=== PATIENT | male | born 2005 | race Caucasian/White ===

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

== ENCOUNTER 2023-03-20 22:44 | Emergency (ER) | payer OTHER ==
[2023-03-20] MEDS ORDERED: diphenhydrAMINE 50 MG/ML 1 ML VIAL IM STA (22:45)
[2023-03-20] MEDS ORDERED: HALOPERIDOL LACTATE 5 MG/ML 1 ML VIAL IM STA (22:45)
[2023-03-20] MEDS ORDERED: LORazepam 2 MG/ML INJ IM STA (22:45)
[2023-03-20 22:52] LABS: Glucose,Whole Blood 104 mg/dL (70-110)
[2023-03-20 22:58] VITALS: TEMP 98.7
--- NOTE | 2023-03-20 23:00 | ED ---
General Adult HPI - General Source: patient Mode of arrival: ambulatory <Phu Monahan - Last Filed: 03/21/23 00:38> - General Source: RN notes reviewed, old records reviewed <Jacobo Woody - Last Filed: 03/21/23 13:41> - General Stated complaint: AMS,Overdose Time Seen by Provider: 03/20/23 22:52 - History of Present Illness Initial comments: This is a 18-year-old male who presents emergency department via EMS and police while handcuffed presents emergency department for increasing agitation and aggression as well as being found in the middle of the street, suicidal. It was reported by EMS that the patient was found to the middle of the street, intoxicated and intermittently verbally responsive but was intimately combative and aggressive. The patient reportedly was dumped by his girlfriend earlier today for "being addicted to cocaine" and therefore was intoxicated and was found in the street. The patient was combative on EMS arrival and did require police to restrain the patient. On arrival, the patient was not able to answer questions appropriately and was intoxicated. The patient was 4. restrained on arrival as well as medicated. The patient did continue to remain stable after medications however no further history was obtained at this time. (Phu Monahan) - Related Data Home Medications Medication Instructions Recorded Confirmed No Known Home Medications 03/21/23 03/21/23 Allergies Allergy/AdvReac Type Severity Reaction Status Date / Time No Known Allergies Allergy Verified 03/21/23 12:12 Review of Systems ROS Other: All systems not noted in ROS Statement are negative. <Phu Monahan - Last Filed: 03/21/23 00:38> ROS Other: All systems not noted in ROS Statement are negative. <Jacobo Woody - Last Filed: 03/21/23 13:41> ROS Statement: Those systems with pertinent positive or pertinent negative responses have been documented in the HPI. Past Medical History Past Medical History: No Reported History History of Any Multi-Drug Resistant Organisms: None Reported Past Surgical History: Ear Surgery Additional Past Surgical History / Comment(s): Tubes in his ears Past Psychological History: No Psychological Hx Reported Smoking Status: Current every day smoker Past Alcohol Use History: Occasional Past Drug Use History: Marijuana <Phu Monahan - Last Filed: 03/21/23 00:38> General Exam Limitations: altered mental status (Combative, aggressive), physical limitation General appearance: alert, anxious, in distress (Combative) Head exam: Present: atraumatic, normocephalic, normal inspection Eye exam: Present: normal appearance, PERRL Pupils: Present: normal accommodation ENT exam: Present: normal exam, normal oropharynx, mucous membranes moist Neck exam: Present: normal inspection, full ROM Respiratory exam: Present: normal lung sounds bilaterally Cardiovascular Exam: Present: regular rate, normal rhythm, normal heart sounds GI/Abdominal exam: Present: soft, normal bowel sounds Extremities exam: Present: normal inspection, full ROM Back exam: Present: normal inspection, full ROM Neurological exam: Present: alert, altered (Combative, aggressive, intoxicated) Psychiatric exam: Present: agitated, suicidal ideation Skin exam: Present: warm, dry <Phu Monahan - Last Filed: 03/21/23 00:38> Course Vital Signs 03/20/23 03/21/23 03/21/23 22:57 05:00 07:33 Temperature 98.7 F Pulse Rate 83 76 78 Respiratory 18 16 18 Rate Blood Pressure 143/75 117/58 101/66 O2 Sat by Pulse 100 97 99 Oximetry Procedures - Restraint - Face to Face Restraint Occurrence 1 Patient's Immediate Situation: Endangers self safety, Endangers others' safety Patient's Reaction to the Intervention: Aggressive, Combative Patient's Medical & Behavioral Condition: Alert, Agitated Need to Continue or Terminate Restraint or Seclusion: Continue Face to Face Eval of Restraint Date: 03/20/23 Face to Face Eval of Restraint Time: 22:55 <Phu Monahan - Last Filed: 03/21/23 00:38> Medical Decision Making - Lab Data Result diagrams: 03/20/23 22:57 03/20/23 22:57 <Phu Monahan - Last Filed: 03/21/23 00:38> - Lab Data Result diagrams: 03/20/23 22:57 03/20/23 22:57 <Jacobo Woody - Last Filed: 03/21/23 13:41> - Medical Decision Making Was pt. sent in by a medical professional or institution (, PA, HEDGE FUND TRADER, urgent care, hospital, or senior care...) When possible be specific @ -No Did you speak to anyone other than the patient for history (EMS, parent, family, police, friend...)? What history was obtained from this source @ -Yes, EMS and police were called the patient at the scene and did state that he had been continuously combative and aggressive Did you review nursing and triage notes (agree or disagree)? Why? @ -I reviewed and agree with nursing and triage notes Were old charts reviewed (outside hosp., previous admission, EMS record, old EKG, old radiological studies, urgent care reports/EKG's, senior care records)? Report findings @ -No old charts were reviewed Differential Diagnosis (chest pain, altered mental status, abdominal pain women, abdominal pain men, vaginal bleeding, weakness, fever, dyspnea, syncope, headache, dizziness, GI bleed, back pain, seizure, CVA, palpatations, mental health)? @ -Polysubstance abuse, alcohol intoxication, cocaine intoxication, suicidal ideation EKG interpreted by me (3pts min.). @ -None X-rays interpreted by me (1pt min.). @ -None done CT interpreted by me (1pt min.). @ -None done U/S interpreted by me (1pt. min.). @ -None done What testing was considered but not performed or refused? (CT, X-rays, U/S, labs)? Why? @ -None What meds were considered but not given or refused? Why? @ -None Did you discuss the management of the patient with other professionals (professionals i.e. , PA, HEDGE FUND TRADER, lab, RT, psych nurse, social science teacher, foster parent, teacher, financial administration officer, case planner)? Give summary @ -No Was smoking cessation discussed for >3mins.? @ -No Was critical care preformed (if so, how long)? @ -No Were there social determinants of health that impacted care today? How? (Homelessness, low income, unemployed, alcoholism, drug addiction, transportation, low edu. Level, literacy, decrease access to med. care, halfway, rehab)? @ -Polysubstance abuse and addiction Was there de-escalation of care discussed even if they declined (Discuss DNR or withdrawal of care, Hospice)? DNR status @ -No What co-morbidities impacted this encounter? (DM, HTN, Smoking, COPD, CAD, Cancer, CVA, ARF, Chemo, Hep., AIDS, mental health diagnosis, sleep apnea, morbid obesity)? @ -None Was patient admitted / discharged? Hospital course, mention meds given and route, prescriptions, significant lab abnormalities, going to OR and other pertinent info. @ -The patient was seen and evaluated emergency department. Initially on arrival, the patient needed several security officers as well as police in order to restrain the patient. The patient was combative, aggressive as well as spitting on all staff. The patient needed be restrained as well as given medications including Benadryl, Ativan and Haldol for both the patient's safety and the safety of the staff. The patient was able to remain calm after this medication was given. It was reported the patient was intoxicated and on cocaine and was saying that he was suicidal secondary to his girlfriend dumping earlier. Laboratory workup was obtained and showed increased on-call intoxication. The remainder laboratory workup was within normal limits. The patient will be closely monitored observed pending sobriety for EPS evaluation. The patient be signed out to the oncoming physician pending EPS evaluation. Undiagnosed new problem with uncertain prognosis? @ -No Drug Therapy requiring intensive monitoring for toxicity (Heparin, Nitro, Insulin, Cardizem)? @ -No Were any procedures done? @ -No Diagnosis/symptom? @ -Alcohol intoxication with combativeness, aggression and suicidality Acute, or Chronic, or Acute on Chronic? @ -Acute Uncomplicated (without systemic symptoms) or Complicated (systemic symptoms)? @ -Complicated Side effects of treatment? @ -No Exacerbation, Progression, or Severe Exacerbation? @ -No Poses a threat to life or bodily function? How? (Chest pain, [place], [place], pneumonia, PE, COPD, DKA, ARF, appy, cholecystitis, CVA, Diverticulitis, Homicidal, Suicidal, threat to staff... and all critical care pts) @ -Yes, continued combativeness and aggression with suicidality lead to continued damage and possible . (Phu Monahan) - Lab Data Lab Results 03/20/23 03/20/23 03/20/23 Range/Units 22:51 22:57 22:57 WBC 11.2 H (4.0-11.0) k/uL RBC 4.74 (4.30-5.90) m/uL Hgb 15.0 (13.0-17.5) gm/dL Hct 45.6 (39.0-53.0) % MCV 96.1 (80.0-100.0) fL MCH 31.7 (25.0-35.0) pg MCHC 33.0 (31.0-37.0) g/dL RDW 12.1 (11.5-15.5) % Plt Count 293 (150-450) k/uL MPV 9.5 Neutrophils % 65 % Lymphocytes % 21 % Monocytes % 9 % Eosinophils % 1 % Basophils % 0 % Neutrophils # 7.3 (1.3-7.7) k/uL Lymphocytes # 2.4 (1.0-4.8) k/uL Monocytes # 1.0 (0-1.0) k/uL Eosinophils # 0.2 (0-0.7) k/uL Basophils # 0.0 (0-0.2) k/uL Sodium 144 (137-145) mmol/L Potassium 4.1 (3.5-5.1) mmol/L Chloride 103 (98-107) mmol/L Carbon Dioxide 22 (22-30) mmol/L Anion Gap 19 mmol/L BUN 9 (9-20) mg/dL Creatinine 0.90 (0.66-1.25) mg/dL Est GFR (CKD-EPI)AfAm >90 (>60 ml/min/1.73 sqM) Est GFR (CKD-EPI)NonAf >90 (>60 ml/min/1.73 sqM) Glucose 109 H (74-99) mg/dL POC Glucose (mg/dL) 104 (70-110) mg/dL POC Glu Block Cuber ID Alex Kameron Calcium 9.6 (8.4-10.2) mg/dL Magnesium 2.3 (1.6-2.3) mg/dL Total Bilirubin 0.7 (0.2-1.3) mg/dL AST 37 (17-59) U/L ALT 32 (4-49) U/L Alkaline Phosphatase 101 (38-126) U/L Total Protein 8.3 H (6.3-8.2) g/dL Albumin 5.1 H (3.5-5.0) g/dL Urine Color Urine Appearance (Clear) Urine pH (5.0-8.0) Ur Specific [place] (1.001-1.035) Urine Protein (Negative) Urine Glucose (UA) (Negative) Urine Ketones (Negative) Urine Blood (Negative) Urine Nitrite (Negative) Urine Bilirubin (Negative) Urine Urobilinogen (<2.0) mg/dL Ur Leukocyte Esterase (Negative) Salicylates <1.0 mg/dL Urine Opiates Screen (NotDetected) Ur Oxycodone Screen (NotDetected) Urine Methadone Screen (NotDetected) Ur Propoxyphene Screen (NotDetected) Acetaminophen <10.0 ug/mL Ur Barbiturates Screen (NotDetected) U Tricyclic Antidepress (NotDetected) Ur Phencyclidine Scrn (NotDetected) Ur Amphetamines Screen (NotDetected) U Methamphetamines Scrn (NotDetected) U Benzodiazepines Scrn (NotDetected) Urine Cocaine Screen (NotDetected) U Marijuana (THC) Screen (NotDetected) Serum Alcohol 267 H* mg/dL 03/20/23 03/20/23 Range/Units 23:00 23:00 WBC (4.0-11.0) k/uL RBC (4.30-5.90) m/uL Hgb (13.0-17.5) gm/dL Hct (39.0-53.0) % MCV (80.0-100.0) fL MCH (25.0-35.0) pg MCHC (31.0-37.0) g/dL RDW (11.5-15.5) % Plt Count (150-450) k/uL MPV Neutrophils % % Lymphocytes % % Monocytes % % Eosinophils % % Basophils % % Neutrophils # (1.3-7.7) k/uL Lymphocytes # (1.0-4.8) k/uL Monocytes # (0-1.0) k/uL Eosinophils # (0-0.7) k/uL Basophils # (0-0.2) k/uL Sodium (137-145) mmol/L Potassium (3.5-5.1) mmol/L Chloride (98-107) mmol/L Carbon Dioxide (22-30) mmol/L Anion Gap mmol/L BUN (9-20) mg/dL Creatinine (0.66-1.25) mg/dL Est GFR (CKD-EPI)AfAm (>60 ml/min/1.73 sqM) Est GFR (CKD-EPI)NonAf (>60 ml/min/1.73 sqM) Glucose (74-99) mg/dL POC Glucose (mg/dL) (70-110) mg/dL POC Glu Block Cuber ID Calcium (8.4-10.2) mg/dL Magnesium (1.6-2.3) mg/dL Total Bilirubin (0.2-1.3) mg/dL AST (17-59) U/L ALT (4-49) U/L Alkaline Phosphatase (38-126) U/L Total Protein (6.3-8.2) g/dL Albumin (3.5-5.0) g/dL Urine Color Light Yellow Urine Appearance Clear (Clear) Urine pH 6.0 (5.0-8.0) Ur Specific [place] 1.006 (1.001-1.035) Urine Protein Negative (Negative) Urine Glucose (UA) Negative (Negative) Urine Ketones Negative (Negative) Urine Blood Negative (Negative) Urine Nitrite Negative (Negative) Urine Bilirubin Negative (Negative) Urine Urobilinogen <2.0 (<2.0) mg/dL Ur Leukocyte Esterase Negative (Negative) Salicylates mg/dL Urine Opiates Screen Not Detected (NotDetected) Ur Oxycodone Screen Not Detected (NotDetected) Urine Methadone Screen Not Detected (NotDetected) Ur Propoxyphene Screen Not Detected (NotDetected) Acetaminophen ug/mL Ur Barbiturates Screen Not Detected (NotDetected) U Tricyclic Antidepress Not Detected (NotDetected) Ur Phencyclidine Scrn Not Detected (NotDetected) Ur Amphetamines Screen Not Detected (NotDetected) U Methamphetamines Scrn Not Detected (NotDetected) U Benzodiazepines Scrn Not Detected (NotDetected) Urine Cocaine Screen Detected H (NotDetected) U Marijuana (THC) Screen Detected H (NotDetected) Serum Alcohol mg/dL Disposition <Phu Monahan - Last Filed: 03/21/23 00:38> Is patient prescribed a controlled substance at d/c from ED?: No Time of Disposition: 13:41 <Jacobo Woody - Last Filed: 03/21/23 13:41> Clinical Impression: Cocaine abuse, Alcohol abuse, Depression Disposition: HOME SELF-CARE Condition: Fair Instructions (If sedation given, give patient instructions): Depression (ED) Additional Instructions: Please follow up with primary care physician and with community mental health Referrals: None,Stated [Primary Care Provider] - 1-2 days
[2023-03-20 23:05] LABS: Basophils % (A) 0 %; Eosinophils # (A) 0.2 k/uL (0-0.7); Eosinophils % (A) 1 %; HCT 45.6 % (39.0-53.0); Lymphocytes # (A) 2.4 k/uL (1.0-4.8); Lymphocytes % (A) 21 %; MCH 31.7 pg (25.0-35.0); MCV 96.1 fL (80.0-100.0); Mean Platelet Volume 9.5; Monocytes % (A) 9 %; Neutrophils # (A) 7.3 k/uL (1.3-7.7); Neutrophils % (A) 65 %; Platelet Count 293 k/uL (150-450); RBC 4.74 m/uL (4.30-5.90); RDW 12.1 % (11.5-15.5); WBC 11.2 k/uL (4.0-11.0)
[2023-03-20 23:20] LABS: Appearance,Urine Clear (Clear); Bilirubin,Urine Negative (Negative); Blood,Urine Negative (Negative); Color,Urine Light Yellow; Glucose,Urine (UA) Negative (Negative); Ketones,Urine Negative (Negative); Leukocyte Esterase,Urine Negative (Negative); Nitrite,Urine Negative (Negative); Protein,Urine Negative (Negative); Specific Gravity,Urine 1.006 (1.001-1.035); Urobilinogen,Urine <2.0 mg/dL (<2.0)
[2023-03-20 23:22] LABS: ALT 32 U/L (4-49); AST 37 U/L (17-59); Acetaminophen <10.0 ug/mL; African American GFR (CKD) >90 (>60 ml/min/1.73 sqM); Albumin 5.1 g/dL (3.5-5.0); Alkaline Phosphatase 101 U/L (38-126); Anion Gap 19 mmol/L; Blood Urea Nitrogen 9 mg/dL (9-20); Calcium 9.6 mg/dL (8.4-10.2); Carbon Dioxide 22 mmol/L (22-30); Chloride 103 mmol/L (98-107); Glucose 109 mg/dL (74-99); Magnesium 2.3 mg/dL (1.6-2.3); Non-African American GFR(CKD) >90 (>60 ml/min/1.73 sqM); Potassium 4.1 mmol/L (3.5-5.1); Salicylate <1.0 mg/dL; Sodium 144 mmol/L (137-145); Total Bilirubin 0.7 mg/dL (0.2-1.3); Total Protein 8.3 g/dL (6.3-8.2)
[2023-03-20 23:26] LABS: Alcohol 267 mg/dL
[2023-03-20 23:33] LABS: Cocaine Screen,Urine Detected (NotDetected); Opiate Screen,Urine Not Detected (NotDetected); Phencyclidine Screen,Urine Not Detected (NotDetected); Urn Cannabinoid Scrn Detected (NotDetected)
[2023-03-20 23:34] LABS: Amphetamine Screen,Urine Not Detected (NotDetected); Barbiturate Screen,Urine Not Detected (NotDetected); Benzodiazepines Screen,Urine Not Detected (NotDetected); Methadone Screen, Urine Not Detected (NotDetected); Oxycodone Screen, Urine Not Detected (NotDetected); Tricyclic Antidepressant,Urine Not Detected (NotDetected)
[2023-03-21 07:35] VITALS: BP 101/66; PULSE 78; RESP 18
== END 2023-03-21 14:00 | disposition home or self-care (01) ==
LOC: EC 22:44
DX: F14.10 Cocaine abuse, uncomplicated (principal); F10.10 Alcohol abuse, uncomplicated; F32.A Depression, unspecified; F17.200 Nicotine dependence, unspecified, uncomplicated; F12.90 Cannabis use, unspecified, uncomplicated; Y90.0 Blood alcohol level of less than 20 mg/100 ml
CPT/HCPCS: 99285 ×2; 96372 ×4; 36415; 80053; 83735; 85025; 81003; 80306; 80143; 80179; G0480; J2060; J1200; J1630; 80320

== ENCOUNTER 2023-03-25 08:34 | Emergency (ER) | payer OTHER ==
[2023-03-25 08:41] VITALS: BP 126/75; PULSE 120; RESP 18; TEMP 97.8
--- NOTE | 2023-03-25 09:00 | ED ---
Head Injury HPI - General Chief complaint: Head Injury Stated complaint: Head injury Time Seen by Provider: 03/25/23 08:44 Source: patient, RN notes reviewed Mode of arrival: ambulatory Limitations: no limitations - History of Present Illness Initial comments: 18-year-old male presents emergency Department chief complaint of a head injury. Patient states that he was doing drug ingestion and somehow bumped his head. He states he has no pain better but vision is unclear how this happened he states he is here to see wants it looked at. He states his tetanus is up-to-date. Patient denies any weakness no other associated symptoms. - Related Data Home Medications Medication Instructions Recorded Confirmed No Known Home Medications 03/21/23 03/21/23 Allergies/Adverse reactions: Allergies Allergy/AdvReac Type Severity Reaction Status Date / Time No Known Allergies Allergy Verified 03/25/23 08:41 Review of Systems ROS Statement: Those systems with pertinent positive or pertinent negative responses have been documented in the HPI. ROS Other: All systems not noted in ROS Statement are negative. Past Medical History Past Medical History: No Reported History History of Any Multi-Drug Resistant Organisms: None Reported Past Surgical History: Ear Surgery Additional Past Surgical History / Comment(s): Tubes in his ears Past Psychological History: No Psychological Hx Reported Smoking Status: Current every day smoker Past Alcohol Use History: Occasional Past Drug Use History: Cocaine, IV Drug Use, Marijuana General Exam Limitations: no limitations General appearance: alert, in no apparent distress Head exam: Present: atraumatic, normocephalic. Absent: normal inspection (Superficial abrasion right parietal frontal) Eye exam: Present: normal appearance, PERRL, EOMI. Absent: scleral icterus, conjunctival injection, periorbital swelling ENT exam: Present: normal exam, normal oropharynx, mucous membranes moist Neck exam: Present: normal inspection, full ROM. Absent: tenderness, meningismus, lymphadenopathy Respiratory exam: Present: normal lung sounds bilaterally. Absent: respiratory distress, wheezes, rales, rhonchi, stridor Cardiovascular Exam: Present: regular rate, normal rhythm, normal heart sounds. Absent: systolic murmur, diastolic murmur, rubs, gallop, clicks Neurological exam: Present: alert, oriented X3, CN II-XII intact, reflexes normal. Absent: motor sensory deficit Skin exam: Present: warm, dry, intact, normal color. Absent: rash Course Vital Signs 03/25/23 08:35 Temperature 97.8 F Pulse Rate 120 H Respiratory 18 Rate Blood Pressure 126/75 O2 Sat by Pulse 100 Oximetry Medical Decision Making - Medical Decision Making Was pt. sent in by a medical professional or institution (SCOTT oCrtés, FINGERER, urgent care, hospital, or snf...) When possible be specific @ -No Did you speak to anyone other than the patient for history (EMS, parent, family, police, friend...)? What history was obtained from this source @ -No Did you review nursing and triage notes (agree or disagree)? Why? @ -I reviewed and agree with nursing and triage notes Were old charts reviewed (outside hosp., previous admission, EMS record, old EKG, old radiological studies, urgent care reports/EKG's, snf records)? Report findings @ -No old charts were reviewed Differential Diagnosis (chest pain, altered mental status, abdominal pain women, abdominal pain men, vaginal bleeding, weakness, fever, dyspnea, syncope, headache, dizziness, GI bleed, back pain, seizure, CVA, palpatations, mental health, musculoskeletal)? @ -Scalp abrasion, scalp laceration, head injury, intracranial hemorrhage EKG interpreted by me (3pts min.). @ -None X-rays interpreted by me (1pt min.). @ -None done CT interpreted by me (1pt min.). @ -None done U/S interpreted by me (1pt. min.). @ -None done What testing was considered but not performed or refused? (CT, X-rays, U/S, labs)? Why? @ -Recommended CT given an known injury but patient declined stating he has asymptomatic patient is awake alert and oriented 4 What meds were considered but not given or refused? Why? @ -None Did you discuss the management of the patient with other professionals (professionals i.e. SCOTT Cortés, FINGERER, lab, RT, psych nurse, older adult social work specialist, zmt operator, teacher, personnel officer, rn case manager hospice)? Give summary @ -No Was smoking cessation discussed for >3mins.? @ -No Was critical care preformed (if so, how long)? @ -No Were there social determinants of health that impacted care today? How? (Homelessness, low income, unemployed, alcoholism, drug addiction, transportation, low edu. Level, literacy, decrease access to med. care, skilled nursing, rehab)? @ -No Was there de-escalation of care discussed even if they declined (Discuss DNR or withdrawal of care, Hospice)? DNR status @ -No What co-morbidities impacted this encounter? (DM, HTN, Smoking, COPD, CAD, Cancer, CVA, ARF, Chemo, Hep., AIDS, mental health diagnosis, sleep apnea, morbid obesity)? @ -Drug abuse Was patient admitted / discharged? Hospital course, mention meds given and route, prescriptions, significant lab abnormalities, going to OR and other pertinent info. @ -Discharge patient has superficial injury to his head there is no required closure tetanus is up-to-date. Recommended CT patient declined. Undiagnosed new problem with uncertain prognosis? @ -No Drug Therapy requiring intensive monitoring for toxicity (Heparin, Nitro, Insulin, Cardizem)? @ -No Were any procedures done? @ -No Diagnosis/symptom? @ -Scalp abrasion Acute, or Chronic, or Acute on Chronic? @ -Acute Uncomplicated (without systemic symptoms) or Complicated (systemic symptoms)? @ -Uncomplicated Side effects of treatment? @ -No Exacerbation, Progression, or Severe Exacerbation? @ -No Poses a threat to life or bodily function? How? (Chest pain, [place], [place], pneumonia, PE, COPD, DKA, ARF, appy, cholecystitis, CVA, Diverticulitis, Homicidal, Suicidal, threat to staff... and all critical care pts) @ -No Disposition Clinical Impression: Scalp abrasion Disposition: HOME SELF-CARE Condition: Stable Instructions (If sedation given, give patient instructions): Head Injury (ED), Abrasion (ED) Additional Instructions: Please return to the Emergency Department if symptoms worsen or any other concerns. Is patient prescribed a controlled substance at d/c from ED?: No Referrals: None,Stated [Primary Care Provider] - 1-2 days Time of Disposition: 09:00
== END 2023-03-25 09:22 | disposition home or self-care (01) ==
LOC: EC 08:34
DX: S00.01XA Abrasion of scalp, initial encounter (principal); F17.200 Nicotine dependence, unspecified, uncomplicated; X58.XXXA Exposure to other specified factors, initial encounter
CPT/HCPCS: 99283

== ENCOUNTER 2023-06-15 14:57 | Inpatient (IN) | payer OTHER ==
[2023-06-15] MEDS ORDERED: SODIUM CHLORIDE 0.9% 1,000 ML IV ONE ×2 (15:59→17:47)
--- NOTE | 2023-06-15 16:01 | ED ---
General Adult HPI - General Chief complaint: Recheck/Abnormal Lab/Rx Stated complaint: cramping and spasms/sweating Time Seen by Provider: 06/15/23 15:50 Source: patient, RN notes reviewed Mode of arrival: ambulatory Limitations: no limitations - History of Present Illness Initial comments: 18 year-old male with past medical history significant for polysubstance abuse presents to the emergency department with a chief complaint of generalized fatigue. Patient reports that he believes that he may tetanus because he feels like he will be working while [employer] and feel his whole body be tense. He has not taken anything for his symptoms. He has never had this happen to him before. He reports that he has not had any contact with ariana mariano horacio that he knows of. He denies any fever, chills, cough, headache, pain, shortness of breath. He does report vomiting 3 times today - Related Data Home Medications Medication Instructions Recorded Confirmed No Known Home Medications 03/21/23 06/15/23 Allergies Allergy/AdvReac Type Severity Reaction Status Date / Time No Known Allergies Allergy Verified 06/15/23 17:28 Review of Systems ROS Statement: Those systems with pertinent positive or pertinent negative responses have been documented in the HPI. ROS Other: All systems not noted in ROS Statement are negative. Past Medical History Past Medical History: No Reported History History of Any Multi-Drug Resistant Organisms: None Reported Past Surgical History: Ear Surgery Additional Past Surgical History / Comment(s): Tubes in his ears Past Psychological History: No Psychological Hx Reported Smoking Status: Current every day smoker Past Alcohol Use History: Occasional Past Drug Use History: Cocaine, IV Drug Use, Marijuana General Exam - General Exam Comments Initial Comments: General: Alert, in no acute distress Head: atraumatic normocephalic. Eyes PERRL, EOMI intact, mucous membranes moist Respiratory: Lungs clear to auscultation bilaterally Cardiovascular: Regular rate and rhythm Abdominal: Soft without guarding or rebound Extremities: Normal inspection with full range of motion and normal capillary refill Neuroogic: alert and oriented 3, CN II-XII intact, able to ambulate with steady gait Skin: warm dry and intact with normal color Limitations: no limitations Course Vital Signs 06/15/23 06/15/23 06/15/23 15:40 16:22 17:06 Temperature 98.3 F 99.0 F 98.9 F Pulse Rate 111 H 82 75 Respiratory 18 16 16 Rate Blood Pressure 133/94 145/90 141/82 O2 Sat by Pulse 100 99 97 Oximetry 06/15/23 06/15/23 17:58 19:05 Temperature 99.3 F Pulse Rate 70 73 Respiratory 17 18 Rate Blood Pressure 142/72 141/87 O2 Sat by Pulse 99 96 Oximetry - Reevaluation(s) Reevaluation #1: 06/15/23 19:35 Patient updated on results. Patient's agreeable with the plan for admission Medical Decision Making - Medical Decision Making Was pt. sent in by a medical professional or institution (, [facility], urgent care, hospital, or skilled nursing...) When possible be specific @ -[No] Did you speak to anyone other than the patient for history (EMS, parent, family, police, friend...)? What history was obtained from this source @ -[No] Did you review nursing and triage notes (agree or disagree)? Why? @ -[I reviewed and agree with nursing and triage notes] Were old charts reviewed (outside hosp., previous admission, EMS record, old EKG, old radiological studies, urgent care reports/EKG's, skilled nursing records)? Report findings @ -[No old charts were reviewed] Differential Diagnosis (chest pain, altered mental status, abdominal pain women, abdominal pain men, vaginal bleeding, weakness, fever, dyspnea, syncope, headache, dizziness, GI bleed, back pain, seizure, CVA, palpatations, mental health, musculoskeletal)? @ -[not applicable] EKG interpreted by me (3pts min.). @ -[As above] X-rays interpreted by me (1pt min.). @ -[None done] CT interpreted by me (1pt min.). @ -[None done] U/S interpreted by me (1pt. min.). @ -[None done] What testing was considered but not performed or refused? (CT, X-rays, U/S, labs)? Why? @ -[None] What meds were considered but not given or refused? Why? @ -[None] Did you discuss the management of the patient with other professionals (professionals i.e. , [facility] [employer], lab, RT, psych nurse, social worker assistant, assistant manager trainee, teacher, property utilization officer, caseworker intake)? Give summary @ -Case discussed with mel Layne who agrees and accepts the patient further observation for fluid resuscitation. Was smoking cessation discussed for >3mins.? @ -[No] Was critical care preformed (if so, how long)? @ -[No] Were there social determinants of health that impacted care today? How? (Homelessness, low income, unemployed, alcoholism, drug addiction, transportation, low edu. Level, literacy, decrease access to med. care, snf, rehab)? @ -[No] Was there de-escalation of care discussed even if they declined (Discuss DNR or withdrawal of care, Hospice)? DNR status @ -[No] What co-morbidities impacted this encounter? (DM, HTN, Smoking, COPD, CAD, Cancer, CVA, ARF, Chemo, Hep., AIDS, mental health diagnosis, sleep apnea, morbid obesity)? @ -[None] Was patient admitted / discharged? Hospital course, mention meds given and route, prescriptions, significant lab abnormalities, going to OR and other pertinent info. @ -Admission. This is a 18-year-old male with a past medical history significant for his polysubstance abuse who presents to the emergency department with generalized muscle aches. Patient had a thorough history and physical exam performed on the ED. Physical exam is essentially unremarkable. Patient is in no acute distress. Heart rate regular rate and rhythm, lungs auscultation bilaterally, abdomen soft nontender. There are no focal neuro deficits on exam. Patient had lab work and imaging performed which revealed WBC 8.3, hemoglobin 17.8 sodium 134 potassium 3.9 BUN 32, creatinine 2.40. creatine kinases 4266 I discussed the results in detail the patient verbalized understanding all questions were addressed. He is agreeable to plan for admission for further observation and fluid management. Case discussed with LAMBERTO Santiago who agrees with plan of care Undiagnosed new problem with uncertain prognosis? @ -[No] Drug Therapy requiring intensive monitoring for toxicity (Heparin, Nitro, Insulin, Cardizem)? @ -[No] Were any procedures done? @ -[No] Diagnosis/symptom? @ -Rhabdomyelysis - Transaminitis - Luekocytosis Acute, or Chronic, or Acute on Chronic? @ -Acute Uncomplicated (without systemic symptoms) or Complicated (systemic symptoms)? @ -Complicated Side effects of treatment? @ -[No] Exacerbation, Progression, or Severe Exacerbation? @ -[No] Poses a threat to life or bodily function? How? (Chest pain, [place], [place], pneumonia, PE, COPD, DKA, ARF, appy, cholecystitis, CVA, Diverticulitis, Homicidal, Suicidal, threat to staff... and all critical care pts) @ -High Likelihood - Lab Data Result diagrams: 06/15/23 16:18 06/15/23 16:18 Lab Results 06/15/23 06/15/23 06/15/23 Range/Units 16:18 16:18 17:59 WBC 17.3 H (4.0-11.0) k/uL RBC 5.51 (4.30-5.90) m/uL Hgb 17.8 H (13.0-17.5) gm/dL Hct 50.9 (39.0-53.0) % MCV 92.4 (80.0-100.0) fL MCH 32.2 (25.0-35.0) pg MCHC 34.9 (31.0-37.0) g/dL RDW 12.9 (11.5-15.5) % Plt Count 259 (150-450) k/uL MPV 10.9 Neutrophils % 88 % Lymphocytes % 6 % Monocytes % 5 % Eosinophils % 1 % Basophils % 0 % Neutrophils # 15.2 H (1.3-7.7) k/uL Lymphocytes # 1.0 (1.0-4.8) k/uL Monocytes # 0.8 (0-1.0) k/uL Eosinophils # 0.1 (0-0.7) k/uL Basophils # 0.1 (0-0.2) k/uL Sodium 134 L (137-145) mmol/L Potassium 3.9 (3.5-5.1) mmol/L Chloride 91 L (98-107) mmol/L Carbon Dioxide 23 (22-30) mmol/L Anion Gap 20 mmol/L BUN 32 H (9-20) mg/dL Creatinine 2.40 H (0.66-1.25) mg/dL Est GFR (CKD-EPI)AfAm 43 (>60 ml/min/1.73 sqM) Est GFR (CKD-EPI)NonAf 38 (>60 ml/min/1.73 sqM) Glucose 135 H (74-99) mg/dL Calcium 11.5 H (8.4-10.2) mg/dL Total Bilirubin 0.8 (0.2-1.3) mg/dL AST 100 H (17-59) U/L ALT 51 H (4-49) U/L Alkaline Phosphatase 147 H (38-126) U/L Creatine Kinase 4266 H* (55-170) U/L Total Protein 10.5 H (6.3-8.2) g/dL Albumin 6.5 H (3.5-5.0) g/dL Coronavirus (PCR) (Not Detectd) 06/15/23 Range/Units 18:00 WBC (4.0-11.0) k/uL RBC (4.30-5.90) m/uL Hgb (13.0-17.5) gm/dL Hct (39.0-53.0) % MCV (80.0-100.0) fL MCH (25.0-35.0) pg MCHC (31.0-37.0) g/dL RDW (11.5-15.5) % Plt Count (150-450) k/uL MPV Neutrophils % % Lymphocytes % % Monocytes % % Eosinophils % % Basophils % % Neutrophils # (1.3-7.7) k/uL Lymphocytes # (1.0-4.8) k/uL Monocytes # (0-1.0) k/uL Eosinophils # (0-0.7) k/uL Basophils # (0-0.2) k/uL Sodium (137-145) mmol/L Potassium (3.5-5.1) mmol/L Chloride (98-107) mmol/L Carbon Dioxide (22-30) mmol/L Anion Gap mmol/L BUN (9-20) mg/dL Creatinine (0.66-1.25) mg/dL Est GFR (CKD-EPI)AfAm (>60 ml/min/1.73 sqM) Est GFR (CKD-EPI)NonAf (>60 ml/min/1.73 sqM) Glucose (74-99) mg/dL Calcium (8.4-10.2) mg/dL Total Bilirubin (0.2-1.3) mg/dL AST (17-59) U/L ALT (4-49) U/L Alkaline Phosphatase (38-126) U/L Creatine Kinase (55-170) U/L Total Protein (6.3-8.2) g/dL Albumin (3.5-5.0) g/dL Coronavirus (PCR) Not Detected (Not Detectd) Disposition Clinical Impression: Rhabdomyolysis, Leukocytosis, Transaminitis Disposition: ADMITTED IP TO THIS [facility] Condition: Stable Is patient prescribed a controlled substance at d/c from ED?: No Referrals: None,Stated [Primary Care Provider] - 1-2 days Time of Disposition: 19:36
[2023-06-15 16:33] LABS: Basophils # (A) 0.1 k/uL (0-0.2); Basophils % (A) 0 %; Eosinophils # (A) 0.1 k/uL (0-0.7); Eosinophils % (A) 1 %; HCT 50.9 % (39.0-53.0); HGB 17.8 gm/dL (13.0-17.5); Lymphocytes % (A) 6 %; MCH 32.2 pg (25.0-35.0); MCHC 34.9 g/dL (31.0-37.0); MCV 92.4 fL (80.0-100.0); Mean Platelet Volume 10.9; Monocytes # (A) 0.8 k/uL (0-1.0); Monocytes % (A) 5 %; Neutrophils # (A) 15.2 k/uL (1.3-7.7); Neutrophils % (A) 88 %; Platelet Count 259 k/uL (150-450); RBC 5.51 m/uL (4.30-5.90); RDW 12.9 % (11.5-15.5); WBC 17.3 k/uL (4.0-11.0)
[2023-06-15 16:42] LABS: ALT 51 U/L (4-49); AST 100 U/L (17-59); African American GFR (CKD) 43 (>60 ml/min/1.73 sqM); Alkaline Phosphatase 147 U/L (38-126); Anion Gap 20 mmol/L; Blood Urea Nitrogen 32 mg/dL (9-20); Calcium 11.5 mg/dL (8.4-10.2); Carbon Dioxide 23 mmol/L (22-30); Chloride 91 mmol/L (98-107); Glucose 135 mg/dL (74-99); Non-African American GFR(CKD) 38 (>60 ml/min/1.73 sqM); Potassium 3.9 mmol/L (3.5-5.1); Sodium 134 mmol/L (137-145); Total Bilirubin 0.8 mg/dL (0.2-1.3)
[2023-06-15 16:57] LABS: Total Protein 10.5 g/dL (6.3-8.2)
[2023-06-15 17:23] LABS: Albumin 6.5 g/dL (3.5-5.0)
[2023-06-15] MEDS ORDERED: NALOXONE 0.4 MG/ML 1 ML VIAL IV PRN (19:39)
[2023-06-15] MEDS: SODIUM CHLORIDE 0.9% 1,000 ML IV SCH (19:56)
[2023-06-16] MEDS: SODIUM CHLORIDE 0.9% 1,000 ML IV SCH ×5 (01:13→19:07)
--- NOTE | 2023-06-16 03:14 | P.HPIM ---
History of Present Illness H&P Date: 06/15/23 Chief Complaint: Upper extremity and lower extremity spasms 18-year-old male no past medical history Patient working in [employer] for the past 2 months today he was having trouble carrying up heavy items having spasms in his hands and legs he was feeling very exhausted over the past couple days he felt like he almost cannot pass out today for which she decided to come in for evaluation especially after his both his hands locked up and he had to pry them open due to spasms Upon evaluation in the ED was found to have rhabdo with elevated CK and acute kidney injury Patient denies any cough shortness of breath chest pain denies any falls head injury denies any back injury denies any abdominal pain changes in bowel or urinary habits denies any bleeding denies any fevers or chills he admits to tobacco smoking and marijuana denies any heavy alcohol review of systems Pertinent positives as noted in HPI. All other systems were reviewed and are negative on exam Constitutional: No acute distress, conversant, pleasant Eyes: Anicteric sclerae, moist conjunctiva, Pupils equal round reactive to light ENMT: NC/AT Oropharynx clear, no erythema, or exudates Neck: Supple, no masses, or JVD No carotid bruits No thyromegaly Lungs: Clear to auscultation Clear to percussion Normal respiratory effort, no accessory muscle use Cardiovascular: Heart regular in rate and rhythm, No murmurs, gallops, or rubs No peripheral edema Abdominal: Soft Nontender, no guarding, rebound or rigidity Abdomen moving with respiration Normoactive bowel sounds No hepatomegaly, No splenomegaly No palpable mass No abdominal wall hernia noted Skin: Normal temperature, tone, texture, turgor No induration No subcutaneous nodules No rash, lesions No ulcers Extremities: No digital cyanosis No clubbing Pedal pulses intact and symmetrical Radial pulses intact and symmetrical No calf tenderness Psychiatric: Alert and oriented to person, place and time Appropriate affect fair judgement Neuro Muscles Strength 5/5 in all 4 extremities Sensation to light touch grossly present throughout Cranial nerves II-XII grossly intact Lymphatics: no palpable cervical or supraclavicular lymph nodes Past Medical History Past Medical History: No Reported History History of Any Multi-Drug Resistant Organisms: None Reported Past Surgical History: Ear Surgery Additional Past Surgical History / Comment(s): Tubes in his ears Past Psychological History: No Psychological Hx Reported Smoking Status: Vaper Past Alcohol Use History: Occasional Past Drug Use History: Cocaine, IV Drug Use, Marijuana Additional Drug Use History / Comment(s): Pt states that he vapes and smokes weed. He denies cigarettes and states that he has been clean from all other substances for a month. Medications and Allergies Home Medications Medication Instructions Recorded Confirmed Type No Known Home Medications 03/21/23 06/15/23 History Allergies Allergy/AdvReac Type Severity Reaction Status Date / Time No Known Allergies Allergy Verified 06/15/23 17:28 Physical Exam Vitals: Vital Signs Temp Pulse Pulse Resp BP BP Pulse Ox 06/16/23 01:41 98.4 F 74 16 124/63 100 06/15/23 22:41 98.1 F 67 16 133/73 98 06/15/23 22:03 98.6 F 69 17 119/61 95 06/15/23 19:57 98.9 F 78 18 129/77 96 06/15/23 19:05 73 18 141/87 96 06/15/23 17:58 99.3 F 70 17 142/72 99 06/15/23 17:06 98.9 F 75 16 141/82 97 06/15/23 16:22 99.0 F 82 16 145/90 99 06/15/23 15:40 98.3 F 111 H 18 133/94 100 Intake and Output 06/15/23 06/15/23 06/16/23 14:59 22:59 06:59 Other: Weight 66.905 kg Results CBC & Chem 7: 06/15/23 16:18 06/15/23 16:18 Labs: Abnormal Lab Results - Last 24 Hours (Table) 06/15/23 06/15/23 06/15/23 Range/Units 16:18 16:18 17:59 WBC 17.3 H (4.0-11.0) k/uL Hgb 17.8 H (13.0-17.5) gm/dL Neutrophils # 15.2 H (1.3-7.7) k/uL Sodium 134 L (137-145) mmol/L Chloride 91 L (98-107) mmol/L BUN 32 H (9-20) mg/dL Creatinine 2.40 H (0.66-1.25) mg/dL Glucose 135 H (74-99) mg/dL Calcium 11.5 H (8.4-10.2) mg/dL AST 100 H (17-59) U/L ALT 51 H (4-49) U/L Alkaline Phosphatase 147 H (38-126) U/L Creatine Kinase 4266 H* (55-170) U/L Total Protein 10.5 H (6.3-8.2) g/dL Albumin 6.5 H (3.5-5.0) g/dL Thrombosis Risk Factor Assmnt - Choose All That Apply Any of the Below Risk Factors Present?: No Other Risk Factors: No Other congenital or acquired thrombophilia - If yes, enter type in comment: No Thrombosis Risk Factor Assessment Level: Very Low Risk Assessment and Plan Assessment: 18-year-old male coming in for fatigue and spasms in his upper and lower extremities discussed the case with the ED doctor and accepted the admission for acute rhabdomyolysis with acute kidney injury anticipated length of stay more than 2 midnights Rhabdomyolysis with acute kidney injury secondary to dehydration and heat exhaustion Aggressive IV fluid hydration with normal saline patient receives 2 L boluses then will continue on 200 mL/h Encourage by mouth intake Monitor CPK in renal option level Monitor urine output Covid test was negative Blood work showing BUN of 32 creatinine 2.4 Calcium 11.5 Sodium 134 potassium 3.9 Electrolyte abnormalities as above Hypercalcemia and hyponatremia Continue with IV fluid hydration with normal saline repeat electrolyte levels in the morning DVT prophylaxis mechanical Full code
[2023-06-16 06:28] LABS: African American GFR (CKD) >90 (>60 ml/min/1.73 sqM); Anion Gap 8 mmol/L; Blood Urea Nitrogen 20 mg/dL (9-20); Calcium 8.7 mg/dL (8.4-10.2); Carbon Dioxide 26 mmol/L (22-30); Chloride 103 mmol/L (98-107); Glucose 93 mg/dL (74-99); Non-African American GFR(CKD) >90 (>60 ml/min/1.73 sqM); Potassium 3.7 mmol/L (3.5-5.1); Sodium 137 mmol/L (137-145)
[2023-06-16 07:39] LABS: Creatine Kinase 4416 U/L (55-170)
--- NOTE | 2023-06-16 14:27 | P.PN ---
Subjective Progress Note Date: 06/16/23 Hospital Course: 18-year-old male with no significant past medical history presenting with lower extremities spasms, and calf pain. He has been working extremely hard over the last few days in the heat. Vital signs have been within normal limits. Laboratory workup showed WBC of 17.3, hemoglobin 17.8, creatinine of 2.4, CK 4266, elevated calcium. Patient was given IV fluids, renal function improved to a creatinine of 0.94, CK remains elevated. Patient admitted for rhabdomyolysis and acute kidney injury. Subjective: Patient seen and examined at bedside. No acute events overnight. Still has some pain in his calf. Pertinent positives and negatives as discussed above, a complete review of systems was performed and all other systems are negative. Vitals Signs Reviewed. General: nontoxic, no distress, appears at stated age Derm: warm, dry Head: atraumatic, normocephalic, symmetric Eyes: EOMI, no lid lag, anicteric sclera Mouth: no lip lesion, mucus membranes moist Cardiovascular: S1S2 reg, no murmur Lungs: CTA bilateral, no rhonchi, no rales , no accessory muscle use Abdominal: soft, nontender to palpation, no guarding, no appreciable organomegaly Ext: no gross muscle atrophy, no edema, no contractures Neuro: CN II-XI grossly intact, no focal neuro deficits Psych: Alert, oriented, appropriate affect Data Reviewed Today: Pertinent Labs: Sodium 137, potassium 3.7, creatinine 0.94, calcium 8.7, CK 4416 Imaging: No new imaging Assessment and Plan: Rhabdomyolysis Acute kidney injury, resolved Dehydration, resolved Hypercalcemia Leukocytosis -Continue to monitor urine, renal function -Repeat BMP and CBC tomorrow -Improving with IV fluids, continue normal saline at 200 mL an hour DVT ppx: Patient is ambulatory Code status: Full code Anticipated discharge place: Home Anticipated discharge time: Likely tomorrow Objective - Vital Signs Vital signs: Vital Signs Temp 98.6 F 06/16/23 12:56 Pulse 67 06/16/23 12:56 Resp 16 06/16/23 12:56 BP 122/61 06/16/23 12:56 Pulse Ox 99 06/16/23 12:56 FiO2 Intake & Output 06/15/23 06/16/23 06/16/23 18:59 06:59 18:59 Intake Total 2480 Balance 2480 Weight 66.905 kg 66.905 kg Intake: Intake, IV Titration 2000 Amount Sodium Chloride 0.9% 1, 1999 000 ml @ 200 mls/hr IV . Q5H [facility] Rx#:[id number] Oral 480 Other: Voiding Method Toilet # Voids 1 1 # Bowel Movements 1 - Labs CBC & Chem 7: 06/15/23 16:18 06/16/23 06:07 Labs: Abnormal Lab Results - Last 24 Hours (Table) 06/15/23 06/15/23 06/15/23 Range/Units 16:18 16:18 17:59 WBC 17.3 H (4.0-11.0) k/uL Hgb 17.8 H (13.0-17.5) gm/dL Neutrophils # 15.2 H (1.3-7.7) k/uL Sodium 134 L (137-145) mmol/L Chloride 91 L (98-107) mmol/L BUN 32 H (9-20) mg/dL Creatinine 2.40 H (0.66-1.25) mg/dL Glucose 135 H (74-99) mg/dL Calcium 11.5 H (8.4-10.2) mg/dL AST 100 H (17-59) U/L ALT 51 H (4-49) U/L Alkaline Phosphatase 147 H (38-126) U/L Creatine Kinase 4266 H* (55-170) U/L Total Protein 10.5 H (6.3-8.2) g/dL Albumin 6.5 H (3.5-5.0) g/dL 06/16/23 Range/Units 06:07 WBC (4.0-11.0) k/uL Hgb (13.0-17.5) gm/dL Neutrophils # (1.3-7.7) k/uL Sodium (137-145) mmol/L Chloride (98-107) mmol/L BUN (9-20) mg/dL Creatinine (0.66-1.25) mg/dL Glucose (74-99) mg/dL Calcium (8.4-10.2) mg/dL AST (17-59) U/L ALT (4-49) U/L Alkaline Phosphatase (38-126) U/L Creatine Kinase 4416 H* (55-170) U/L Total Protein (6.3-8.2) g/dL Albumin (3.5-5.0) g/dL
[2023-06-16] MEDS: NICOTINE 14MG/24HR PATCH TRANSDERM SCH (19:57)
[2023-06-17] MEDS: SODIUM CHLORIDE 0.9% 1,000 ML IV SCH ×3 (00:13→09:41)
[2023-06-17 07:12] LABS: African American GFR (CKD) >90 (>60 ml/min/1.73 sqM); Anion Gap 4 mmol/L; Blood Urea Nitrogen 12 mg/dL (9-20); Calcium 8.3 mg/dL (8.4-10.2); Carbon Dioxide 26 mmol/L (22-30); Chloride 109 mmol/L (98-107); Glucose 81 mg/dL (74-99); Non-African American GFR(CKD) >90 (>60 ml/min/1.73 sqM); Potassium 4.4 mmol/L (3.5-5.1); Sodium 139 mmol/L (137-145)
[2023-06-17 07:23] LABS: Creatine Kinase 3158 U/L (55-170)
[2023-06-17] MEDS: NICOTINE 14MG/24HR PATCH TRANSDERM SCH (09:08)
[2023-06-17 12:04] VITALS: BP 134/64; PULSE 55; RESP 17; TEMP 98.4
--- NOTE | 2023-06-17 12:19 | P.DS ---
Providers Date of admission: 06/15/23 20:23 Expected date of discharge: 06/17/23 Attending physician: Anastasia Johnson MD Primary care physician: Stated None Hospital Course: Discharge Diagnosis: Rhabdomyolysis Acute kidney injury Dehydration Hypercalcemia Leukocytosis Hospital Course: 18-year-old male with no significant past medical history presenting with lower extremities spasms, and calf pain. He has been working extremely hard over the last few days in the heat. Vital signs have been within normal limits. Laboratory workup showed WBC of 17.3, hemoglobin 17.8, creatinine of 2.4, CK 4266, elevated calcium. Patient was given IV fluids, renal function improved to a creatinine of 0.94, CK remains elevated. Patient admitted for rhabdomyolysis and acute kidney injury. Improved with IV fluids. Patient being discharged home Patient seen and examined at bedside. Vital signs reviewed and stable. General: nontoxic, no distress, appears at stated age Derm: warm, dry Head: atraumatic, normocephalic, symmetric Eyes: EOMI, no lid lag, anicteric sclera Mouth: no lip lesion, mucus membranes moist Cardiovascular: S1S2 reg, no murmur Lungs: CTA bilateral, no rhonchi, no rales , no accessory muscle use Abdominal: soft, nontender to palpation, no guarding, no appreciable organomegaly Ext: no gross muscle atrophy, no edema, no contractures Neuro: CN II-XI grossly intact, no focal neuro deficits Psych: Alert, oriented, appropriate affect A total of 33 minutes of time were spent preparing this complex discharge summary. Patient was discharged on 06/17/23 at 12:17. Patient Condition at Discharge: Stable Plan - Discharge Summary New Discharge Prescriptions: No Action No Known Home Medications Discharge Medication List No Known Home Medications 03/21/23 [History] Follow up Appointment(s)/Referral(s): None,Stated [Primary Care Provider] - 1-2 days Patient Instructions/Handouts: Rhabdomyolysis (DC) Activity/Diet/Wound Care/Special Instructions: Please refrain from heavy work for a few days. Stay hydrated. Please see a PCP. Discharge Disposition: HOME SELF-CARE
== END 2023-06-17 13:20 | disposition home or self-care (01) | DRG 351 ==
LOC: EC 14:57 → 6NMEDSUR 19:45 → OBSVTOIN 20:23 → 6NMEDSUR 20:56 → 5NMEDONC 22:10
PROVIDERS: ADMIT Internal Medicine; ATTEND Internal Medicine
DX: M62.82 Rhabdomyolysis (principal); N17.9 Acute kidney failure, unspecified; E87.1 Hypo-osmolality and hyponatremia; E86.0 Dehydration; E83.52 Hypercalcemia; R74.01 Elevation of levels of liver transaminase levels; F17.290 Nicotine dependence, other tobacco product, uncomplicated; T67.5XXA Heat exhaustion, unspecified, initial encounter; F19.91 Other psychoactive substance use, unspecified, in remission; Z20.822 Contact with and (suspected) exposure to COVID-19; X30.XXXA Exposure to excessive natural heat, initial encounter
CPT/HCPCS: 36415; 80048; 80053; 82550; 85025; 87635; 96360; 96361; 99285

== ENCOUNTER 2025-03-14 11:13 | Emergency (ER) | payer OTHER ==
[2025-03-14 11:22] VITALS: TEMP 98
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
[2025-03-14] MEDS: IBUPROFEN 600 MG TAB PO STA (12:42)
[2025-03-14 12:51] VITALS: BP 134/87; PULSE 76; RESP 16
== END 2025-03-14 12:53 | disposition home or self-care (01) ==
LOC: EC 11:13
DX: S09.90XA Unspecified injury of head, initial encounter (principal); F17.290 Nicotine dependence, other tobacco product, uncomplicated; Y04.8XXA Assault by other bodily force, initial encounter
CPT/HCPCS: 70450; 72125; 99284